=== PATIENT | male | born 1975 ===

== ENCOUNTER 2020-12-18 16:38 | Emergency (ER) | payer OTHER ==
[~2020-12-18] VITALS: Ht 177.8 cm; Wt 99.8 kg
[2020-12-18] MEDS ORDERED: Prednisone20 MG PO (19:01)
[2020-12-18] MEDS ORDERED: Ventolin/Prove6.7 GM INH (19:01)
== END 2020-12-18 19:31 | disposition home or self-care (01) ==
LOC: ER 16:38
DX: J45.901 Unspecified asthma with (acute) exacerbation (principal)
CPT/HCPCS: 94644; 96374; 99284-25; J2930